=== PATIENT | female | born 1990 | race Caucasian/White ===

== ENCOUNTER 2023-04-12 15:44 | Outpatient (CLI) | payer OTHER, MEDICAID, SELFPAY ==
--- NOTE | 2023-04-12 16:00 | CRLHL7_ITS ---
For Patients: As a result of the Century Cures Act, medical imaging exams and procedure reports are released immediately into your electronic medical record. You may view this report before your referring provider. If you have questions, please contact your health care provider. Indication: Right mid back lump Technique: Ultrasound chest Comparison: None Findings: Present in the right mid back is 7.7 centimeter x 2.1 centimeter x 6.4 centimeter oval isoechoic solid lesion with a thin echogenic capsule. Findings are nonspecific but has a nonaggressive appearance and most likely represents a lipoma. Impression: 7.7 centimeter probable lipoma right mid back. Recommend clinical follow-up. Dictated by Chris Brasher MD @ 04/12/2023 5:18:43 PM (Electronically Signed)
== END 2023-04-12 15:45 | disposition home or self-care (01) ==
LOC: US 15:45
PROVIDERS: PCP Nurse Practitioner Family; Visit Provider Nurse Practitioner Family
DX: M79.89 Other specified soft tissue disorders (principal); D17.1 Benign lipomatous neoplasm of skin and subcutaneous tissue of trunk
CPT/HCPCS: 76604

== ENCOUNTER 2023-04-29 07:20 | Day surgery (SDC) | payer OTHER, MEDICAID, SELFPAY ==
[2023-04-29 07:50] VITALS: BP 122/63; PULSE 98; RESP 16; TEMP 36.6; O2SAT 97; BMI 36.3
[2023-04-29] MEDS: SODIUM CHLORIDE 0.9 % (FLUSH) 10 ML SYRINGE IVF (07:54)
[2023-04-29] MEDS: LACTATED RINGERS 1000 ML 1,000 ML 100 ML IV (07:54)
[2023-04-29 08:01] LABS: Ur HCG Qualitative* Negative (Negative)
--- NOTE | 2023-04-29 08:32 | PM.GSPRC ---
Operative Note Pre-op diagnosis: Right back mass Post-op diagnosis: Intramuscular lipoma Type of Procedure: Excision right intramuscular back mass, 2 x 7 x 8 cm Indications: The patient is a 32-year-old female who was noted to have a mass on her right back. This was imaged and found to be likely a lipoma. Given its size of over 7 cm, excision was offered. She agreed to proceed after discussion of options. Procedure Description: After discussing the risks and benefits of the procedure, the patient signed informed consent.? The operative site was marked and the patient was brought to the operating room and placed on the operating table in left lateral decubitus position.? Care was taken to pad the patient's pressure points, and place an axillary roll.?? The patient was then given sedation by anesthesia.?? The operative site was then prepped and draped in the usual sterile fashion.? A time-out was then performed. Local anesthetic was injected into the skin and subcutaneous tissue overlying the mass. The incision was made following Felix's lines. Dissection was taken down into the subcutaneous tissue using cautery. Subcutaneous fat was encountered, however a clear lipomatous mass was not noted. It felt as though the mass was deeper. I continued my careful dissection. Muscle fascia was then encountered. This was incised and a few superficial muscle fibers spread bluntly. A fatty mass was encountered just underneath this. I was able to remove this from the surrounding subcutaneous fat using finger dissection. This was then delivered from the incision. A few small fibrous attachments were divided with cautery. The specimen was measured and sent to pathology. The wound was examined for hemostasis. This appeared excellent. The muscle fascia was then closed with 2 0 Vicryl in a running fashion. The subcutaneous tissue was closed with interrupted 2-0 Vicryl. The skin was then closed with 3-0 Vicryl dermal and 4 0 Monocryl running subcuticular suture. Glue was then applied. ? The patient was then woken and transported to the recovery area in stable condition. ? The patient tolerated the procedure well. Findings: 2 x 8 x 7 cm intramuscular back mass. Surgeon: Felicitas Daniel MD Estimated blood loss (mL): 5 Additional Specimen Information: Right back mass Condition: stable Disposition: same day
[2023-04-29] MEDS: BUPIVACAINE 0.25% 30 ML INJECTION (09:00)
--- NOTE | 2023-04-29 09:19 | W.ANESCHARGE ---
Anesthesia Charges Start Date/Time Anesthesia Start Date: 04/29/23 Anesthesia Start Time: 08:38 Stop Date/Time Anesthesia Stop Date: 04/29/23 Anesthesia Stop Time: 09:34
[2023-04-29 09:30] VITALS: BP 110/81; PULSE 63; RESP 16; TEMP 36.7; O2SAT 99
--- NOTE | 2023-04-29 09:35 | W.ANESCHARGE ---
Anesthesia Charges Start Date/Time Anesthesia Start Date: 04/29/23 Anesthesia Start Time: 08:38 Stop Date/Time Anesthesia Stop Date: 04/29/23 Anesthesia Stop Time: 09:34
[2023-04-29 09:45] VITALS: BP 107/94; PULSE 64; RESP 16; O2SAT 98
[2023-04-29 10:00] VITALS: BP 107/66; PULSE 60; RESP 16; O2SAT 99
== END 2023-04-29 10:17 | disposition home or self-care (01) ==
PROVIDERS: Anesthesiology; PCP Nurse Practitioner Family; Visit Provider Surgery
PROC: (CPT 21933; principal; 2023-04-29 08:45)
DX: D17.1 Benign lipomatous neoplasm of skin and subcutaneous tissue of trunk (principal)
CPT/HCPCS: 21933; 00300; 81025; 88304; J0665; J2250; J2405; J2704; J3010; J3490; J7120

== ENCOUNTER 2023-05-06 14:51 | Outpatient (CLI) | payer OTHER, MEDICAID, SELFPAY | END 2023-05-06 14:52 | disposition home or self-care (01) | PROVIDERS: PCP Nurse Practitioner Family; Visit Provider Nurse Practitioner Family | DX: E66.9 Obesity, unspecified (principal); E03.9 Hypothyroidism, unspecified; R53.83 Other fatigue; R55 Syncope and collapse; F41.9 Anxiety disorder, unspecified; L03.90 Cellulitis, unspecified | CPT/HCPCS: 80053; 84443; 85025 ==

== ENCOUNTER 2023-08-19 12:46 | Outpatient (CLI) | payer OTHER, MEDICAID, SELFPAY | END 2023-08-19 12:47 | disposition home or self-care (01) | LOC: RAD 12:47 | PROVIDERS: PCP Nurse Practitioner Family; Visit Provider Internal Medicine | DX: R00.2 Palpitations (principal); R55 Syncope and collapse | CPT/HCPCS: 93306 ==

== ENCOUNTER 2023-12-30 08:43 | Outpatient (CLI) | payer OTHER, MEDICAID, SELFPAY ==
--- OUTSIDE RECORDS SUMMARY | 2023-12-30 08:45 | XMS_ITS | Clinical Summary ---
Author Name Unknown Organization [facility] Address [place], [place] [address] Care Team Providers Care Control System Manager Name Role Phone Chloe Ortiz CIGARETTE MAKING MACHINE HOPPER FEEDER Primary Care Provider [phone]- [phone] Rai Shahid MD Unavailable Unavail able Allergies Active Allergy Reactions Criticality Noted Date Comments Citalopram Other - Describe In Comment Field 11/11/2011 [place] numb(couldn't laugh or cry) Medications Medication Sig Dispensed Refills Start Date End Date Status levothyroxine (SYNTHROID) 125 mcg tabletIndications:Unsp ecified hypothyroidism Take 1 tablet by mouth before breakfast. 0 04/16/2015 Active FLUoxetine (PROZAC) 20 mg capsuleIndications:[place] or depressive disorder, recurrent, in full remission (HC) Take 1 capsule by mouth every morning. 90 capsule 1 04/20/2016 Active buPROPion (WELLBUTRIN XL) 300 mg Extended-Release tabletIndications:Mirta r depressive disorder, recurrent, in full remission (HC) Take 1 tablet by mouth every morning. 90 tablet 1 04/20/2016 Active [id number] fumarate-FA () 28-800 mg-mcg tabIndications:Recurre nt major depressive disorder, in full remission (HC) Take by mouth. 30 Tab 2 05/13/2016 Active Active Problems Problem Noted Date Diagnosed Date Hx of cannabis abuse 09/03/2015 History of migraine headaches 12/13/2014 Major depression, recurrent 10/03/2014 Vitamin D deficiency 10/03/2014 Borderline personality disorder 03/04/2012 Iron deficiency anemia, unspecified 09/17/2009 Unspecified hypothyroidism 11/28/2008 GERD (gastroesophageal reflux disease) 8 Dysmenorrhea 08/16/2008 Resolved Problems Problem Noted Date Diagnosed Date Resolved Date Depression, major, recurrent, moderate 02/21/2014 10/03/2014 Cannabis abuse, continuous 01/05/2013 1 Tobacco use disorder 01/05/2013 015 Adjustment disorder with mix ed anxiety and depressed mood 10/08/2008 02/21/2014 Major depressive disorder, r ecurrent episode, unspecified 10/04/2008 05/28/2010 Immunizations Name Administration Dates Next Due DTP-HIB 03/17/1994,05/29/1993,04/03/1993 ,01/07/1993 DTaP 10/31/1997 Hepatitis B (Peds) 09/23/1993,04/03/1993, 993 Human Papilloma Virus Vaccine 01/14/2009, 009,07/18/2008 MMR 11/27/2004,03/17/1994 Oral Polio Vaccine 10/31/1997,03/17/1994, 993,01/07/1993 Td (Age >=7 Years) 11/27/2004 Family History Medical History Relation Name Comments Asthma Father Psychiatric illness Father depressi on GI Disease Mother GERD Asthma Paternal Grandmother Relation Name Status Comments Father Mother Paternal Grandmother Social History Tobacco Use Types Packs/Day Years Used Date Smoking Tobacco: Former Cigarettes 0.3 9.3 S tarted: 08/27/2014 Smokeless Tobacco: Never Tobacco Cessation:Counseling Given: Yes Comments:1 PPD since 2006 Alcohol Use Standard Drinks/Week Comments No 0 (1 standard drink = 0.6 oz pur e alcohol) Social Connections Answer Date Recorded Frequency of Communication with Friends and Fami ly Not on file 06/18/2023 Sex and Gender Information Value Date Recorded Sex Assigned at Not on file Gender Identity Not on file Sexual Orientation Not on file Obstetrics History Para Term AB IAB SAB Ectopic Multiple Livin g Live Births 1 1 Date Outcome GA Total Labor Labor/2nd/3rd Weight Sex Delivery Anes PTL Katherine A1 A5 Name Cl in Last Filed Vital Signs Vital Sign Reading Time Taken Comments Blood Pressure 99/65 04/20/2016 10:10 AM CDT Pulse 57 04/20/2016 10:10 AM CDT Temperature 36.9 ??C (98.5 ??F) 01/11/2015 2:45 PM CD T Respiratory Rate - - Oxygen Saturation 98% 11/04/2015 11:27 AM FINAL INSPECTOR MOVEMENT ASSEMBLY Inhaled Oxygen Concentration - - Weight 108.9 kg (240 lb) 04/20/2016 10:10 AM CDT Height 163.2 cm (5' 4.25) 04/20/2016 10:10 AM C DT Body Mass Index 40.88 04/20/2016 10:10 AM CDT Plan of Treatment Health Maintenance Due Date Last Done Comments Tdap 11/26/2003 HIV for age 15-65 11/26/2007 Hepatitis C screening for age 18-79 2010 Tetanus booster 11/27/2014 11/27/2004 BMI (ht and wt on same day) for age 18+ 04/20/2017 04/20/2016, 11/04/2015 Depression screening for age 12+ 04/20/2017 04/20/2016, 04/20/2016, 11/04/2015 COVID-19 vaccine series (2022- season) 2023 Influenza for age 9-49 05/07/2024 Pap test for age 21-65 05/22/2024 , 10/20/2017, 11/09/2016, Additional history exists Pneumococcal series for age 6-64 Aged Out No longer eligible based on patient's age to complete this topic Procedures Procedure Name Priority Date/Time Associated Diagnosis Comments CLINICAL PRACTICE CONSULTANT THIN PREP PAP SCREEN IMAGED Routine 05/22/2021 3:45 PM CDT from Last 3 Months or Most Recently Relevant to Health Maintenance Results * CLINICAL PRACTICE CONSULTANT THIN PREP PAP SCREEN IMAGED (05/22/2021 3:45 PM CDT) Case Report Gynecologic Cytology Report ? Case: [id number] ? Authorizing Provider: ??Ceci Koo, CNM ? Collected: ? 05/22/2021 1545 ? Ordering Location: ? [facility] ?Received: ?05/28/2021 0755 ? First Screen: ?Thao, Aisha ? Pathologist: ? Sara Almanza ? MD Jo ? Specimen: ?CLINICAL PRACTICE CONSULTANT ThinPrep Vial Screening, Cervical/Vaginal ? 06/11/2021 10:35 AM [facility] INTERPRETATION/ RESULT NEGATIVE FOR INTRAEPITHELIAL LESION OR MALIGNANCY (NIL) (none) 06/11/2021 10:35 AM [facility] IMEN ADEQUACY Satisfactory for evaluation No endocervical component seen in a patient 06/11/2021 10:35 AM CDT [facility] [employer] [facility]-C ENTRPA LABORATORY HPV REQUEST HPV not requested 2020 10:35 AM CDT [facility] ENTRAL LAB[facility]ATORY Menstrual Status 06/11/2021 10:35 AM CDT [facility] [employer] [facility] ENTRAL LABORATORY Additional Information 06/11/2021 10:35 AM CDT [facility] Comment: Interpreted at [facility] - [address] [place] [address] Ave[address] [place] [address] Automated Review Successful 06/11/2021 10:35 AM CDT [facility] ENTRPA LABORATORY Comment:Specimen processed s uccessfully by automated heel splitter device, MightyNestPrep Imaging System, [employer] Note The pap test is a screening technique, not a diagnostic procedure. It is used primarily to screen for squamous cancers and precursor lesions. Published studies have shown that it is subject to both false negative and false positive results. The pap test should not be used as the sole means to diagnose or exclude pre-malignant and malignant lesions. 06/11/2021 10:35 AM CDT [facility] [employer] [facility] Other (Cervical/Vagina l) 05/22/2021 3:45 PM CDT 05/28/2021 7:55 AM CDT Ceci Koo CNM PATHOLOGY/CYTOLOGY [facility] [employer] [facility]-CENTRAL LABORATORY [address] [place] [address], [place] from Last 3 Months or Most Recently Relevant to Health Maintenance Care Teams Control System Manager Relationship Specialty Start Date End Date Chloe Ortiz CIGARETTE MAKING MACHINE HOPPER FEEDER [address] [place] [address] PCP - General Emergency Medicine 06/17/23 Rai Shahid MD [address] [place] [address] 06/17/23
--- NOTE | 2023-12-30 09:30 | US_ITS ---
Patient: MOUSTAPHA BENNETT Facility:?[facility] Patient ID:?[id number] Site Patient ID:?[id number]. Site :?[id number] Study:?US-OB Pelvis -12/30/2023 9:13:05 AM Ordering Physician:?GURU GAGE Final Report: INDICATION: HEMORRHAGE IN EARLY . Unknown LMP. Positive test. Serum hCG of 95. TECHNIQUE: Ultrasound OB pelvis transvaginal. Real-time bello-scale imaging of the pelvis was performed. COMPARISON: None available. FINDINGS: The uterus is retroverted and retroflexed. No intrauterine gestational sac or pole is identified. The endometrial stripe measures 9 mm in thickness. No discrete myometrial mass is identified. The right ovary measures 4.1 x 1.9 x 2.3 cm. Blood flow seen within the right ovary on color Doppler. The left ovary measures 3.7 x 1.8 x 2.6 cm. Blood flow is seen within the left ovary on color Doppler. There is a heterogeneous structure within the left adnexa between the uterus and the left ovary. This structure measures 1.6 x 3.0 x 3.0 cm. Color Doppler demonstrates hypervascularity within this adnexal structure. No discrete gestational sac or pole is identified. Trace free fluid in the pelvis. IMPRESSION: 1. No intrauterine gestation is identified; however, given low serum beta HCG, it may be too early to detect an early intrauterine . 2. Complex left adnexal mass between the left ovary and uterus raises concern for ectopic . Recommend serial serum beta HCG measurements and repeat ultrasound as clinically indicated. 3. Trace pelvic free fluid. Dictated by Estela Choi MD @ 12/30/2023 9:38:11 AM ----- ADDENDUM ----- Impression discussed via telephone with GURU GAGE on 12/30/2023 at 9:35 a.m. Dictated by Estela Choi MD @ Dec 30 2023 9:38AM Signed by:?Estela Choi MD @12/30/2023 9:38:11 AM (Electronic Signature)
== END 2023-12-30 08:44 | disposition home or self-care (01) ==
PROVIDERS: PCP Nurse Practitioner Family; Visit Provider Physician Assistant
DX: O20.9 Hemorrhage in early pregnancy, unspecified (principal); O35.8XX0 Maternal care for other (suspected) fetal abnormality and damage, not applicable or unspecified; O34.81 Maternal care for other abnormalities of pelvic organs, first trimester; Z3A.00 Weeks of gestation of pregnancy not specified; N83.202 Unspecified ovarian cyst, left side
CPT/HCPCS: 76817; 80053; 84702; J9260

== ENCOUNTER 2024-01-02 08:19 | Outpatient (CLI) | payer OTHER, MEDICAID, SELFPAY ==
--- OUTSIDE RECORDS SUMMARY | 2024-01-20 14:24 | XMS_ITS | Clinical Summary ---
Author Name Unknown Organization [employer] [facility] Address [place], [place] [address] Care Team Providers Care Buckle Frame Shaper Name Role Phone Chloe Ortiz MICROWAVE TECHNICIAN Primary Care Provider +1- [phone] Rai Shahid MD Unavailable Unavail able Allergies Active Allergy Reactions Criticality Noted Date Comments Citalopram Other - Describe In Comment Field 11/11/2011 [place] numb(couldn't laugh or cry) Medications Medication Sig [...] every morning. 90 tablet 1 04/20/2016 Active [id number]-roahqzi fumarate-FA () 28-800 mg-mcg tabIndications:Recurre nt major [...] - Oxygen Saturation 98% 11/04/2015 11:27 AM HAIR ASSISTANT Inhaled Oxygen Concentration - - Weight 108.9 [...] Procedure Name Priority Date/Time Associated Diagnosis Comments AGENCY MANAGER THIN PREP PAP SCREEN IMAGED Routine 05/22/2021 3:45 PM CDT from Last 3 Months or Most Recently Relevant to Health Maintenance Results * AGENCY MANAGER THIN PREP PAP SCREEN IMAGED (05/22/2021 3:45 PM CDT) Case Report Gynecologic Cytology Report ? Case: [id number] ? Authorizing Provider: ??Ceci Koo, CNM ? Collected: ? 05/22/2021 1545 ? Ordering Location: ? [facility] ?Received: ?05/28/2021 0755 ? First Screen: ?Thao, Aisha ? Pathologist: ? Sara Almanza ? MD Jo ? Specimen: ?AGENCY MANAGER ThinPrep Vial Screening, Cervical/Vaginal ? 06/11/2021 10:35 AM [facility] INTERPRETATION/ RESULT NEGATIVE FOR INTRAEPITHELIAL LESION OR MALIGNANCY (NIL) (none) 06/11/2021 10:35 AM T [facility] IMEN ADEQUACY Satisfactory for evaluation No endocervical component seen in a patient 06/11/2021 10:35 AM CDT [facility] [employer] [facility]-C ENTRKS LABORATORY HPV REQUEST HPV not requested 2020 10:35 AM CDT [facility] ENTRAL LABORATORY Menstrual Status 06/11/2021 10:35 AM CDT [facility] [employer] [facility] ENTRAL LABORATORY Additional Information 06/11/2021 10:35 AM CDT [facility] Comment: Interpreted at [facility] - [address] [place] [address] [address] [place] [address] Automated Review Successful 06/11/2021 10:35 AM CDT [facility] ENTRKS LABORATORY Comment:Specimen processed s uccessfully by automated digital content producer device, Clean MobilePrep Imaging System, [employer] Note The pap test is a [...] and malignant lesions. 06/11/2021 10:35 AM CDT [facility] [employer] [facility] LAB[facility] Other (Cervical/Vagina l) 05/22/2021 3:45 PM CDT 05/28/2021 7:55 AM CDT Ceci Koo CNM PATHOLOGY/CYTOLOGY [facility] [employer] [facility]CEN[facility]AL LAB[facility]ATORY [address] [place] [address], [place] from Last 3 Months or Most Recently Relevant to Health Maintenance Care Teams Buckle Frame Shaper Relationship Specialty Start Date End Date Chloe Ortiz MICROWAVE TECHNICIAN [address] [place] [address] PCP - General Emergency Medicine 06/17/23 Rai Shahid MD [address] [place] [address] 06/17/23
== END 2024-01-02 08:20 | disposition home or self-care (01) ==
LOC: NFLDREF 01-20 14:18
PROVIDERS: PCP Nurse Practitioner Family; Referring Provider Nurse Practitioner Family; Visit Provider Physician Assistant
DX: O20.9 Hemorrhage in early pregnancy, unspecified (principal)
CPT/HCPCS: 84702

== ENCOUNTER 2024-01-05 08:01 | Outpatient (CLI) | payer OTHER, MEDICAID, SELFPAY ==
--- OUTSIDE RECORDS SUMMARY | 2024-01-06 12:03 | XMS_ITS | Clinical Summary ---
Author Name Unknown Organization [employer] [facility] Address [place], [place] [address] Care Team Providers Care Ammonia Nitrate Operator Name Role Phone Chloe Ortiz FORM GRADER Primary Care Provider [phone]- [phone] Rai Shahid MD Unavailable Unavail able Allergies Active Allergy Reactions Criticality Noted Date Comments Citalopram Other - Describe In Comment Field 11/11/2011 [place] numb(couldn't laugh or cry) Medications Medication Sig [...] every morning. 90 tablet 1 04/20/2016 Active [id number]-ubgifck fumarate-FA () 28-800 mg-mcg tabIndications:Recurre nt major [...] Used Date Smoking Tobacco: Former Cigarettes 0.3 9.4 S tarted: 08/27/2014 Smokeless Tobacco: Never Tobacco [...] - Oxygen Saturation 98% 11/04/2015 11:27 AM MANAGER PROGRAM MANAGEMENT Inhaled Oxygen Concentration - - Weight 108.9 kg (240 lb) 04/20/2016 10:10 AM CDT Height 163.2 cm (5' 4.25) 04/20/2016 10:10 AM C DT Body Mass Index 40.88 04/20/2016 10:10 AM CDT Plan of Treatment Upcoming Encounters Date Type Department Care Team (Late st Contact Info) Description 01/13/2024 9:30 AM CDT Office Visit [facility] [address] [place] [address] Denzel Roman MD [address] [facility] [address] [place], [place] [id number] Health Maintenance Due Date Last Done Comments Tdap 11/26/2003 HIV for age 15-65 11/26/2007 Hepatitis C screening for age 18-79 2010 Tetanus booster 11/27/2014 11/27/2004 BMI (ht and wt on same day) for age 18+ 04/20/2017 04/20/2016, 11/04/2015 Depression screening for age 12+ 04/20/2017 04/20/2016, 04/20/2016, 11/04/2015 COVID-19 vaccine series ( season) 2023 Influenza for age 9-49 05/07/2024 Pap test for age 21-65 05/22/2024 , 10/20/2017, 11/09/2016, Additional history exists Pneumococcal series for age 6-64 Aged Out No longer eligible based on patient's age to complete this topic Procedures Procedure Name Priority Date/Time Associated Diagnosis Comments SNOWBOARDER THIN PREP PAP SCREEN IMAGED Routine 05/22/2021 3:45 PM CDT from Last 3 Months or Most Recently Relevant to Health Maintenance Results * SNOWBOARDER THIN PREP PAP SCREEN IMAGED (05/22/2021 3:45 PM CDT) Case Report Gynecologic Cytology Report ? Case: [id number] ? Authorizing Provider: ??Ceci Koo CNM ? Collected: ? 05/22/2021 1545 ? Ordering Location: ? [facility] ?Received: ?05/28/2021 0755 ? First Screen: ?Thao, Aisha ? Pathologist: ? Archie, Sara ? MD Jo ? Specimen: ?SNOWBOARDER ThinPrep Vial Screening, Cervical/Vaginal ? 06/11/2021 10:35 AM CDT [facility] [employer] [facility] ENTRAL LABORATORY INTERPRETATION/ RESULT NEGATIVE FOR INTRAEPITHELIAL LESION OR MALIGNANCY (NIL) (none) 06/11/2021 10:35 AM CDT [facility]-C ENTRAL LABORATORY IMEN ADEQUACY Satisfactory for evaluation No endocervical component seen in a patient 06/11/2021 10:35 AM CDT [facility] ENTRSC LABORATORY HPV REQUEST HPV not requested 2020 10:35 AM CDT [facility]- ENTRAL LABORATORY Menstrual Status 06/11/2021 10:35 AM CDT [facility] ENTRAL LABORATORY Additional Information 06/11/2021 10:35 AM CDT [facility] ENTRSC LABORATORY Comment: Interpreted at [facility] - [address] [place], [place] [address]e., [place] [address] Automated Review Successful 06/11/2021 10:35 AM CDT [facility] [employer] [facility] ENTRAL LABORATORY Comment:Specimen processed s uccessfully by automated photograph mounter device, ThinPrep Imaging System, [employer] Note The pap test is a [...] and malignant lesions. 06/11/2021 10:35 AM CDT [facility] Other (Cervical/Vagina l) 05/22/2021 3:45 PM CDT 05/28/2021 7:55 AM CDT Ceci Koo CNM PATHOLOGY/CYTOLOGY [facility]-CEN[facility]AL LABORATORY [address] [place] [address], [place] from Last 3 Months or Most Recently Relevant to Health Maintenance Care Teams Ammonia Nitrate Operator Relationship Specialty Start Date End Date Chloe Ortiz FORM GRADER [address] [place] [address] PCP - General Emergency Medicine 06/17/23 Rai Shahid MD [address] [place] [address] 06/17/23
== END 2024-01-05 08:02 | disposition home or self-care (01) ==
LOC: NFLDREF 01-06 12:01
PROVIDERS: PCP Nurse Practitioner Family; Referring Provider Nurse Practitioner Family; Visit Provider Obstetrics & Gynecology
DX: O00.90 Unspecified ectopic pregnancy without intrauterine pregnancy (principal)
CPT/HCPCS: 82565; 84450; 84460; 84520; 84702

== ENCOUNTER 2024-04-03 16:37 | Outpatient (CLI) | payer OTHER, MEDICAID, SELFPAY ==
--- OUTSIDE RECORDS SUMMARY | 2024-04-03 16:39 | XMS_ITS | Clinical Summary ---
Author Organization [employer] [facility] Address [place], [place] [address] Care Team Providers Care Wildlife And Game Protector Name Role Phone Chloe Ortiz SCHOOL BUS DRIVER/TEACHER ASSISTANT Primary Care Provider +1- [phone] Rai Shahid MD Unavailable Unavail able Allergies Active Allergy Reactions Criticality Noted Date Comments Citalopram Other - Describe In Comment Field 11/11/2011 [place] numb(couldn't laugh or cry) Medications Medication Sig [...] every morning. 90 tablet 1 04/20/2016 Active [id number] fumarate-FA () 28-800 mg-mcg tabIndications:Recurre nt major [...] Used Date Smoking Tobacco: Former Cigarettes 0.3 9.6 S tarted: 08/27/2014 Smokeless Tobacco: Never Tobacco [...] Outcome GA Total Labor Labor/2nd/3rd Weight Sex Type Anes PTL Katherine A1 A5 Name Clin Last Filed Vital Signs Vital Sign Reading Time Taken Comments Blood Pressure 99/65 04/20/2016 10:10 AM CDT Pulse 57 04/20/2016 10:10 AM CDT Temperature 36.9 ??C (98.5 ??F) 01/11/2015 2:45 PM CD T Respiratory Rate - - Oxygen Saturation 98% 11/04/2015 11:27 AM COMMUNITY HEALTH PROMOTER Inhaled Oxygen Concentration - - Weight 108.9 [...] Procedure Name Priority Date/Time Associated Diagnosis Comments REPAIR SERVICE DISPATCHER THIN PREP PAP SCREEN IMAGED Routine 05/22/2021 3:45 PM CDT from Last 3 Months or Most Recently Relevant to Health Maintenance Results * REPAIR SERVICE DISPATCHER THIN PREP PAP SCREEN IMAGED (05/22/2021 3:45 PM CDT) Case Report Gynecologic Cytology Report ? Case: [id number] ? Authorizing Provider: ??Ceci Koo, CNM ? Collected: ? 05/22/2021 1545 ? Ordering Location: ? [facility] ?Received: ?05/28/2021 0755 ? First Screen: ?Thao, Aisha ? Pathologist: ? Sara Almanza ? MD Jo ? Specimen: ?REPAIR SERVICE DISPATCHER ThinPrep Vial Screening, Cervical/Vaginal ? 06/11/2021 10:35 AM [facility] INTERPRETATION/ RESULT NEGATIVE FOR INTRAEPITHELIAL LESION OR MALIGNANCY (NIL) (none) 06/11/2021 10:35 AM [facility] IMEN ADEQUACY Satisfactory for evaluation No endocervical component seen in a patient 06/11/2021 10:35 AM CDT [facility] [employer] [facility] HPV REQUEST HPV not requested 2020 10:35 AM CDT [facility] [employer] [facility] Menstrual Status 06/11/2021 10:35 AM CDT [facility] [employer] [facility] Additional Information 06/11/2021 10:35 AM CDT [facility] Comment: Interpreted at [facility] - [address] [place] [address] [address] [place] [address] Automated Review Successful 06/11/2021 10:35 AM CDT [facility] [employer] [facility] Comment:Specimen processed s uccessfully by automated cable television program director device, Aquatic InformaticsPrep Imaging System, [employer] Note The pap test is a [...] and malignant lesions. 06/11/2021 10:35 AM CDT [facility] [employer] [facility] Other (Cervical/Vagina l) 05/22/2021 3:45 PM CDT 05/28/2021 7:55 AM CDT Ceci Koo CNM PATHOLOGY/CYTOLOGY [facility] [employer] LABORATORY-CENTRAL LABORATORY [address] [place] [address], [place] from Last 3 Months or Most Recently Relevant to Health Maintenance Care Teams Wildlife And Game Protector Relationship Specialty Start Date End Date Chloe Ortiz, SCHOOL BUS DRIVER/TEACHER ASSISTANT [address] [place] [address] PCP - General Emergency Medicine 06/17/23 Rai Shahid MD [address] [place] [address] 06/17/23
--- NOTE | 2024-04-03 17:00 | CRLHL7_ITS ---
For Patients: As a result of the Cures Act, medical imaging exams and procedure reports are released immediately into your electronic medical record. You may view this report before your referring provider. If you have questions, please contact your health care provider. INDICATION: Previous ectopic, took medication, f/u previous COMPARISON: 12/30/2023 TECHNIQUE: Real-time bello-scale imaging of the pelvis was performed. FINDINGS: No intrauterine or ectopic . Ovaries are normal. Right ovary measures 2.0 x 2.6 x 2.5 cm. Left ovary measures 3.1 x 1.2 x 1.2 cm. Normal endometrium measuring 8.8 millimeters. No adnexal mass or pelvic free fluid. Uterus measures 6.7 x 5.3 x 5.8 cm. No abnormal vascularity. IMPRESSION: The left adnexa appears normal on the current study. No suspicious findings. No intrauterine or ectopic . Dictated by Chris Stein MD @ 04/04/2024 8:36:54 AM (Electronically Signed)
== END 2024-04-03 16:38 | disposition home or self-care (01) ==
LOC: US 16:38
PROVIDERS: PCP Nurse Practitioner Family; Visit Provider Obstetrics & Gynecology
DX: N94.89 Other specified conditions associated with female genital organs and menstrual cycle (principal)
CPT/HCPCS: 76830; 76856

== ENCOUNTER 2024-06-13 15:23 | Outpatient (CLI) | payer BC, MEDICAID, SELFPAY ==
--- OUTSIDE RECORDS SUMMARY | 2024-06-13 15:29 | XMS_ITS | Clinical Summary ---
Author Organization [employer] [facility] Address [place], [place] [address] Care Team Providers Care Diagnostic Assistant Name Role Phone Chloe Ortiz SCHOOL PHYSICAL THERAPIST Primary Care Provider +1- [phone] Rai Shahid MD Unavailable Unavail able Allergies Active Allergy Reactions Criticality Noted Date Comments Citalopram Other - Describe In Comment Field 11/11/2011 [place] numb(couldn't laugh or cry) Medications Medication Sig [...] every morning. 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 Inhaled Oxygen Concentration - - Weight 108.9 [...] 04/20/2017 04/20/2016, 04/20/2016, 11/04/2015 COVID-19 vaccine series (2023- season) 2024 Influenza for age 9-49 05/07/2024 Pap test for age 21-65 05/22/2024 , 10/20/2017, 11/09/2016, Additional history exists Pneumococcal series for age 6-64 Aged Out No longer eligible based on patient's age to complete this topic Procedures Procedure Name Priority Date/Time Associated Diagnosis Comments HEATING ELEMENT WINDER THIN PREP PAP SCREEN IMAGED Routine 05/22/2021 3:45 PM CDT from Last 3 Months or Most Recently Relevant to Health Maintenance Results * HEATING ELEMENT WINDER THIN PREP PAP SCREEN IMAGED (05/22/2021 3:45 PM CDT) Case Report Gynecologic Cytology Report ? Case: [id number] ? Authorizing Provider: ??Ceci Koo, CNM ? Collected: ? 05/22/2021 1545 ? Ordering Location: ? [facility] ?Received: ?05/28/2021 0755 ? First Screen: ?Thao, Aisha ? Pathologist: ? Sara Almanza ? MD Jo ? Specimen: ?HEATING ELEMENT WINDER ThinPrep Vial Screening, Cervical/Vaginal ? 06/11/2021 10:35 AM [facility] LAB[facility]ORY INTERPRETATION/ RESULT NEGATIVE FOR INTRAEPITHELIAL LESION OR MALIGNANCY (NIL) (none) 06/11/2021 10:35 AM [facility] LABORATORY IMEN ADEQUACY Satisfactory for evaluation No endocervical component seen in a patient 06/11/2021 10:35 AM CDT [facility] [place] [facility] LABORAT[facility] HPV REQUEST HPV not requested 2020 10:35 AM CDT [facility] [place] [facility] LAB[facility]ATORY Menstrual Status 06/11/2021 10:35 AM CDT [facility] [place] [facility] Additional Information 06/11/2021 10:35 AM CDT [facility] [place] [facility] Comment: Interpreted at [facility] - [address] [place] [address] [address] [place] [address] Automated Review Successful 06/11/2021 10:35 AM CDT [facility] [place] [facility] LABORATORY Comment:Specimen processed s uccessfully by automated dog raiser device, Gearbox SoftwarePrep Imaging System, [employer] Note The pap test is a [...] and malignant lesions. 06/11/2021 10:35 AM CDT [facility] [place] [facility] LABORATORY Other (Cervical/Vagina l) 05/22/2021 3:45 PM CDT 05/28/2021 7:55 AM CDT Ceci Koo CNM PATHOLOGY/CYTOLOGY [facility] [place] LABORATORY-CENTRAL LABORATORY [address] [place] [address], [place] from Last 3 Months or Most Recently Relevant to Health Maintenance Care Teams Diagnostic Assistant Relationship Specialty Start Date End Date Chloe Ortiz, SCHOOL PHYSICAL THERAPIST [address] [place] [address] PCP - General Emergency Medicine 06/17/23 Rai Shahid MD [address] [place] [address] 06/17/23
== END 2024-06-13 15:24 | disposition home or self-care (01) ==
LOC: KYNREF 15:27
PROVIDERS: PCP Nurse Practitioner Family; Visit Provider Nurse Practitioner Family
DX: R05.9 Cough, unspecified (principal); R06.2 Wheezing
CPT/HCPCS: 82103

== ENCOUNTER 2024-06-23 12:47 | Outpatient (CLI) | payer BC, MEDICAID, SELFPAY ==
--- OUTSIDE RECORDS SUMMARY | 2024-06-23 12:53 | XMS_ITS | Clinical Summary ---
Author Organization [employer] [facility] Address [place], [place] [address] Care Team Providers Care Shotblaster Name Role Phone Chloe Ortiz DIP DYER Primary Care Provider +1- [phone] Rai Shahid MD Unavailable Unavail able Allergies Active Allergy Reactions Criticality Noted Date Comments Citalopram Other - Describe In Comment Field 11/11/2011 [place] numb(couldn't laugh or cry) Medications Medication Sig [...] every morning. 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 Case: [id number] ? Authorizing Provider: ??Ceci Koo, CNM ? Collected: ? 05/22/2021 1545 ? Ordering Location: ? [facility] ?Received: ?05/28/2021 0755 ? First Screen: ?Thao, Aisha ? Pathologist: ? Sara Almanza ? MD Jo ? Specimen: ?APPRAISAL COORDINATOR ThinPrep Vial Screening, Cervical/Vaginal ? 06/11/2021 10:35 AM T [facility] LABORATORY INTERPRETATION/ RESULT NEGATIVE FOR INTRAEPITHELIAL LESION OR MALIGNANCY (NIL) (none) 06/11/2021 10:35 AM T [facility] LABORAT[facility] IMEN ADEQUACY Satisfactory for evaluation No endocervical component seen in a patient 06/11/2021 10:35 AM CDT [facility] [employer] [facility] LABORAT[facility] HPV REQUEST HPV not requested 2020 10:35 AM CDT [facility] [employer] [facility] ENTRAL LABORATORY Menstrual Status 06/11/2021 10:35 AM CDT [facility] [employer] [facility] EN[facility]AL LAB[facility]ATORY Additional Information 06/11/2021 10:35 AM CDT [facility] [employer] [facility] Comment: Interpreted at [facility] - [address] [place] [address] [address] [place] [address] Automated Review Successful 06/11/2021 10:35 AM CDT [facility] [employer] [facility] ENTR[facility] LABORATORY Comment:Specimen processed s uccessfully by automated actuarial consultant device, CU[employer] SolutionsPrep Imaging System, [employer] Note The pap test is a [...] and malignant lesions. 06/11/2021 10:35 AM CDT [facility] [employer] [facility] ENTR[facility] LABORATORY Other (Cervical/Vagina l) 05/22/2021 3:45 PM CDT 05/28/2021 7:55 AM CDT Ceci Koo CNM PATHOLOGY/CYTOLOGY [facility] [employer] LABORATORY-CENTRAL LABORATORY [address] [place] [address], [place] from Last 3 Months or Most Recently Relevant to Health Maintenance Care Teams Shotblaster Relationship Specialty Start Date End Date Chloe Ortiz, DIP DYER [address] [place] [address] PCP - General Emergency Medicine 06/17/23 Rai Shahid MD [address] [place] [address] 06/17/23
[2024-06-23 16:29] LABS: PCR FLU A Negative PCR FLU A (Negative); PCR FLU B Negative PCR FLU B (Negative); PCR RSV Negative PCR RSV (Negative); SARS PCR* Negative SARS-CoV-2 (Negative)
== END 2024-06-23 12:48 | disposition home or self-care (01) ==
PROVIDERS: PCP Nurse Practitioner Family; Visit Provider Nurse Practitioner Family
DX: R05.9 Cough, unspecified (principal); R06.2 Wheezing
CPT/HCPCS: 85025; 85379; 87631